=== PATIENT | male | born 1990 | race Hispanic/Latino ===

== ENCOUNTER 2018-02-26 03:26 | Emergency (ER) | payer SELFPAY ==
[2018-02-26 03:35] VITALS: TEMP 97.5
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
[2018-02-26 09:08] VITALS: BP 126/80; PULSE 92; RESP 14; O2SAT 98
--- NOTE | 2018-02-26 09:11 | ED PDOC ---
- ECG O2 Sat by Pulse Oximetry: 98 - Progress Re-evaluation Time: 09:10 Condition: Improved (Awake alert orientedx3 No focal neuro deficits) Disposition - Clinical Impression Clinical Impression: Alcohol intoxication - POA Present On Arrival: None - Disposition Referrals: [facility] [Outside] Disposition: Routine/Home Disposition Time: 09:11 Condition: FAIR Instructions: Alcohol Abuse and Alcoholism (DC) Forms: [employer] ([place])
== END 2018-02-26 09:20 | disposition home or self-care (01) ==
LOC: H.ER 03:26
DX: F10.129 Alcohol abuse with intoxication, unspecified (principal); Y90.8 Blood alcohol level of 240 mg/100 ml or more
CPT/HCPCS: 70450; 70486; 99284; G0480